=== PATIENT | male | born 1975 | race Caucasian/White ===

== ENCOUNTER 2023-10-10 13:20 | Emergency (ER) | payer OTHER, SELFPAY ==
[2023-10-10 13:21] VITALS: BP 137/91; PULSE 81; RESP 16; TEMP 36.7; O2SAT 97; BMI 25.8
--- NOTE | 2023-10-10 13:44 | W.ED.NECK ---
HPI - Neck Pain/Injury General: Chief Complaint: Neck Pain/Injury Stated Complaint: Swelling in neck Time Seen by Provider: 10/10/23 13:39 History of Present Illness: 48-year-old male patient comes in today for complaints of swelling to the right submandibular area. Patient reports no pain to the teeth or significant discomfort. Patient noticed area about 2 to 3 days ago. Patient appears nontoxic. Patient appears no acute distress. Review of Systems General: Reports: 10 or more systems reviewed and unremarkable except in HPI and below Physical Exam Const: COMMON NORMALS: alert HENMT: COMMON NORMALS: normocephalic HEAD & SCALP: normocephalic MOUTH: Abnormal oral and palatal mucosa present (Some mild swelling sublingual.) Neck/C-Spine: COMMON NORMALS: full ROM OTHER: 2 cm tender mobile mass right submandibular area Chest: COMMONS NORMALS: normal inspection of the chest Resp: COMMON NORMALS: normal respiratory effort Cardio: COMMON NORMALS: regular rate RATE: regular rate GI: COMMON NORMALS: Soft to palpation PALPATION: Yes Soft to palpation Extremity: COMMON NORMALS: normal to inspection Neuro: SENSORIUM/ORIENTATION: Yes alert Skin: COMMON NORMALS: turgor normal GENERAL SKIN EXAM: turgor normal Course Vital Signs: Vital signs: Vital Signs Temperature 98.0 F 10/10/23 13:21 Pulse Rate 81 10/10/23 13:21 Respiratory Rate 16 10/10/23 13:21 Blood Pressure 137/91 10/10/23 13:21 Pulse Oximetry 97 10/10/23 13:21 Oxygen Delivery Me thod Room Air 10/10/23 13:21 MDM - Neck Pain/Injury Medical Decision Making 48-year-old male patient comes in today with a palpable nodule to the right submandibular area. The area is approximately 2 cm. The areas freely mobile. Vital signs are normal. Differential diagnosis includes but not limited to sialadenitis, lymphadenitis, periapical abscess, lymphadenopathy. Patient be placed on clindamycin 300 mg 1 capsule 3 times a day for the next 7 days. Encourage plenty of fluids. Recommend follow-up with ENT for recheck in 1 week. Patient reported understanding agreed to plan. No radiology studies performed this visit Discharge Plan Discharge Patient Disposition: Home Clinical Impression: Acute bacterial sialadenitis Condition: Stable Prescriptions: New clindamycin HCl 300 mg capsule 300 mg PO Q8H 7 Days Qty: 21 0RF No Action losartan-hydrochlorothiazide 100-25 mg Tablet 1 tab PO DAILY Discharge Orders: Discharge ED (Routine); Ordered 10/10/23 Ordered By: Darin Alvarez Discharge Diet: Usual diet Discharge Activity: Increase activity as tolerated Patient Instructions: Sialoadenitis (ED) Activity Restrictions/Additional Instructions: Stay well-hydrated. Take antibiotics as directed. Follow-up with fire prevention research engineer for further evaluation and treatment in 1 week. Return to ER for worsening swelling, fever greater than 100.4, or increased pain. Coding Level of Care Code ED Financial Analyst Intern for [employer]
[2023-10-10 14:05] VITALS: BP 126/75; PULSE 83; O2SAT 95
== END 2023-10-10 14:05 | disposition home or self-care (01) ==
PROVIDERS: Emergency Provider Nurse Practitioner Family
DX: K11.21 Acute sialoadenitis (principal)
CPT/HCPCS: 99283

== ENCOUNTER 2024-01-03 10:20 | Outpatient (CLI) | payer MEDICAID, SELFPAY ==
--- NOTE | 2024-01-03 10:26 | XR_ITS ---
WS: [id number] Chest 2 views, 01/03/2024 Clinical Data: chronic cough Comparison: None. Findings: No nodules, masses or effusions are seen. The heart is normal. The pulmonary vascularity is not increased. No pneumonia or pneumothorax is seen. XR/XR chest 2V* [id number] Impression: Negative chest.
== END 2024-01-03 10:21 | disposition home or self-care (01) ==
PROVIDERS: PCP Family Medicine; Visit Provider Family Medicine
DX: R05.8 Other specified cough (principal); I10 Essential (primary) hypertension; Z87.81 Personal history of (healed) traumatic fracture; Z87.820 Personal history of traumatic brain injury
CPT/HCPCS: 71046; 80053; 84443; 85025

== ENCOUNTER → 2024-01-07 11:35 | Outpatient (BNVA) | payer MEDICAID, SELFPAY | PROVIDERS: PCP Family Medicine; Visit Provider Family Medicine | DX: D58.2 Other hemoglobinopathies (principal) | CPT/HCPCS: 82728; 83550; 84466; 85007; 85027 ==

== ENCOUNTER → 2024-05-13 13:07 | Outpatient (BNVA) | payer MEDICAID, SELFPAY | PROVIDERS: PCP Nurse Practitioner Family; Visit Provider Nurse Practitioner Family | DX: D58.2 Other hemoglobinopathies (principal); I10 Essential (primary) hypertension | CPT/HCPCS: 80053; 80061; 83540; 84443; 85025 ==

== ENCOUNTER → 2024-06-12 08:47 | Outpatient (BNVA) | payer MEDICAID, SELFPAY | PROVIDERS: PCP Nurse Practitioner Family; Visit Provider Nurse Practitioner Family | DX: L81.4 Other melanin hyperpigmentation (principal); D22.39 Melanocytic nevi of other parts of face; D48.5 Neoplasm of uncertain behavior of skin | CPT/HCPCS: 11104; 99203 ==

== ENCOUNTER → 2025-01-04 11:11 | Outpatient (BNVA) | payer MEDICAID, SELFPAY | PROVIDERS: PCP Nurse Practitioner Family; Visit Provider Nurse Practitioner Family | DX: I10 Essential (primary) hypertension (principal) | CPT/HCPCS: 80053; 80061; 84443; 85025 ==

== ENCOUNTER → 2025-01-19 09:24 | Outpatient (BNVA) | payer MEDICAID, SELFPAY | PROVIDERS: PCP Nurse Practitioner Family; Visit Provider Nurse Practitioner Family | DX: D58.2 Other hemoglobinopathies (principal); I10 Essential (primary) hypertension | CPT/HCPCS: 82607; 82746 ==